=== PATIENT | male | born 1960 ===

== ENCOUNTER → 2016-07-05 | Outpatient (REF) | payer MEDICARE, OTHER | LOC: LAB 14:10 | PROVIDERS: ATTEND Family Medicine | DX: Z51.81 Encounter for therapeutic drug level monitoring (principal); Z79.01 Long term (current) use of anticoagulants | CPT/HCPCS: 85610 ==

== ENCOUNTER → 2016-08-16 | Outpatient (REF) | payer MEDICARE, OTHER | LOC: LAB 14:09 | PROVIDERS: ATTEND Family Medicine | DX: Z51.81 Encounter for therapeutic drug level monitoring (principal); Z79.01 Long term (current) use of anticoagulants | CPT/HCPCS: 85610 ==

== ENCOUNTER → 2016-09-13 | Outpatient (REF) | payer MEDICARE, OTHER ==
[~2016-09-13] MED LIST: ALPR1TAB5; AML5T PO; ATOR20TA PO; AZTH50T PO; BCL10T; BUSP15TA55 PO; CALC-656; CITA40TA19; DOCU-34 PO; FLUD0.1T; FNT50TD; GABA300T24; LEVO25TA2; MORP15TA; OMEP20CA12; OMEP40CA36 PO; OXYC1TAB9; POTA20PA3; PRED-284; QTP100T PO; TEST75GE3; TOPI50TA4; VIT1TABL57; WARF6TAB; WARF6TAB3 PO; [UNRECOGNIZED DRUG - CODE] PO
== END ==
LOC: LAB 13:26
PROVIDERS: ATTEND Family Medicine
DX: Z51.81 Encounter for therapeutic drug level monitoring (principal); Z79.01 Long term (current) use of anticoagulants
CPT/HCPCS: 85610

== ENCOUNTER → 2016-09-27 | Outpatient (REF) | payer MEDICARE, OTHER | LOC: LAB 13:56 | PROVIDERS: ATTEND Family Medicine | DX: Z51.81 Encounter for therapeutic drug level monitoring (principal); Z79.01 Long term (current) use of anticoagulants | CPT/HCPCS: 85610 ==

== ENCOUNTER → 2016-10-25 | Outpatient (REF) | payer MEDICARE, OTHER | LOC: LAB 14:12 | PROVIDERS: ATTEND Family Medicine | DX: Z51.81 Encounter for therapeutic drug level monitoring (principal); Z79.01 Long term (current) use of anticoagulants | CPT/HCPCS: 85610 ==